=== PATIENT | female | born 1970 ===

== ENCOUNTER 2017-01-13 07:59 | Day surgery (SDC) | payer OTHER ==
[2017-01-10 11:44] VITALS: BMI 28.3
[2017-01-13] MEDS ORDERED: Propofol 10 mg/ml Inj (20 ML) ONE (09:20)
[2017-01-13] MEDS ORDERED: Midazolam 2 MG/2 ML VIAL ONE (09:20)
[2017-01-13] MEDS ORDERED: Sodium Chloride 0.9% 1,000 ML IV SCH (09:45)
[2017-01-13 10:40] VITALS: PULSE 64
[2017-01-13 10:56] VITALS: RESP 16; TEMP 97.9; O2SAT 100
[2017-01-13 11:17] VITALS: BP 126/78
== END 2017-01-13 11:21 | disposition home or self-care (01) ==
LOC: ENDO 07:59
PROVIDERS: ATTEND Internal Medicine
DX: R10.13 Epigastric pain (principal); K29.50 Unspecified chronic gastritis without bleeding
CPT/HCPCS: 43239; 88305; 88342; J2250; J2704; J3010; J7040 ×2

== ENCOUNTER 2017-01-17 17:14 | Emergency (ER) | payer OTHER ==
[2017-01-17 17:15] VITALS: BMI 28.3
[2017-01-17 17:22] VITALS: TEMP 98.3; O2SAT 100
--- NOTE | 2017-01-17 17:28 | ED PDOC ---
Arrival/HPI - General Chief Complaint: Allergic Reaction Time Seen by Provider: 01/17/17 17:24 - History of Present Illness Narrative History of Present Illness (Text): 46F complaining of facial rash and itching that started after she received IV contrast during an outpatient CT scan. she was transported from CT to the emergency department. she denies any throat swelling or SOB. Past Medical History - Infectious Disease Hx of Infectious Diseases: None - Reproductive Menopause: No - Cardiac Hx Pacemaker: No - Neurological Hx Paralysis: No - Hematological/Oncological Hx Blood Transfusions: No - Musculoskeletal/Rheumatological Hx Musculoskeletal Disorders: No - Gastrointestinal Hx Gastroesophageal Reflux: Yes - Psychiatric Hx Emotional Abuse: No Hx Physical Abuse: No Hx Substance Use: No - Anesthesia Hx Anesthesia Reactions: No Hx Malignant Hyperthermia: No - Suicidal Assessment Feels Threatened In Home Enviroment: No Family/Social History Family/Social History: Other (nc) Smoking Status: Unknown If Ever Smoked Hx Alcohol Use: No Hx Substance Use: No Allergies/Home Meds Allergies/Adverse Reactions: Allergies Iodinated Contrast Media - Oral and Allergy (Verified 01/17/17 17:18) URTICARIA Home Medications: Home Meds Medication Instructions Recorded Confirmed Phentermine HCl [Adipex-P] 37.5 mg PO DAILY 01/13/17 01/17/17 Pantoprazole [Protonix] 40 mg PO DAILY 01/17/17 01/17/17 Review of Systems - Review of Systems Constitutional: absent: Fevers Eyes: absent: Vision Changes Respiratory: absent: SOB, Cough Cardiovascular: absent: Chest Pain Gastrointestinal: absent: Nausea, Vomiting Skin: Rash Physical Exam Vital Signs Reviewed: Yes Vital Signs Temp Pulse Resp BP Pulse Ox 01/17/17 17:15 98.3 F 87 16 148/73 100 Appearance: Positive for: Well-Appearing, Non-Toxic, Comfortable Pain Distress: None Mental Status: Positive for: Alert and Oriented X 3 - Systems Exam Head: Present: Atraumatic Pupils: Present: PERRL Mouth: Present: Moist Mucous Membranes Neck: Present: Normal Range of Motion Respiratory/Chest: Present: Clear to Auscultation. No: Respiratory Distress, Accessory Muscle Use, Wheezes Cardiovascular: Present: Regular Rate and Rhythm Neurological: Present: GCS=15, Motor Func Grossly Intact, Normal Sensory Function Skin: Present: Warm, Dry, Rashes (scattered erythematous rash on face) Medical Decision Making ED Course and Treatment: 01/17/17 18:20 pt reports her sx are completely resolved and she requests dc. - Medication Orders Current Medication Orders: Discontinued Medications Diphenhydramine HCl (Benadryl) 50 mg PO STAT STA Stop: 01/17/17 17:26 Last Admin: 01/17/17 17:34 Dose: 50 mg Famotidine (Pepcid) 40 mg PO STAT STA Stop: 01/17/17 17:29 Last Admin: 01/17/17 17:34 Dose: 40 mg Prednisone (Prednisone Tab) 60 mg PO STAT ONE Stop: 01/17/17 17:26 Last Admin: 01/17/17 17:34 Dose: 60 mg Disposition/Present on Arrival - Present on Arrival Any Indicators Present on Arrival: No History of DVT/PE: No History of Uncontrolled Diabetes: No Urinary Catheter: No History of Decub. Ulcer: No History Surgical Site Infection Following: None - Disposition Have Diagnosis and Disposition been Completed?: Yes Diagnosis: Allergic reaction to contrast dye Disposition: HOME/ ROUTINE Disposition Time: 18:20 Condition: IMPROVED
[2017-01-17 18:36] VITALS: BP 135/79; PULSE 73; RESP 18
== END 2017-01-17 18:35 | disposition home or self-care (01) ==
LOC: ED 17:14
DX: L25.8 Unspecified contact dermatitis due to other agents (principal); T50.8X5A Adverse effect of diagnostic agents, initial encounter